=== PATIENT | female | born 1960 | race Caucasian/White ===

== ENCOUNTER → 2021-03-27 12:01 | Outpatient (CLI) | payer OTHER, SELFPAY ==
--- NOTE | 2021-03-27 | DI.MRI.S_ITS ---
PROCEDURE: MR HEAD/BRAIN WO CON INDICATIONS: Myoclonus TECHNIQUE: Non-contrast axial T1 spin echo, axial T2 fast spin echo, sagittal and axial FLAIR, coronal T2 fast spin echo, axial gradient echo, axial diffusion and ADC through the brain. COMPARISON: None. FINDINGS: Image quality: Excellent. CSF spaces: Ventricles appear symmetric in size and shape. Basal cisterns are patent. No extra-axial fluid collections. Brain: No intracranial bleeds or mass effects. There is mild cerebral volume loss for age. There are minimal periventricular and deep white matter chronic small vessel ischemic changes. Brainstem appears normal. Diffusion-weighted images show no acute ischemic insults. No chronic ischemic insults. Normal intravascular flow voids are present. Skull and face: Calvarial bone marrow is normal in signal. Orbits are normal. Sinuses: Retention cyst within the right maxillary sinus inferiorly. Sinuses and mastoids are otherwise clear. IMPRESSION: 1. Mild volume loss and minimal small vessel ischemic disease. 2. No acute process. No recent infarct. Dictated by: Stephani Rodriguez M.D. on 03/27/2021 at 12:49 Approved by: Stephani Rodriguez M.D. on 03/27/2021 at 12:50
== END ==
PROVIDERS: PCP Family Medicine; Referring Provider Family Medicine; Visit Provider Family Medicine
DX: G25.3 Myoclonus (principal); R20.0 Anesthesia of skin; R20.2 Paresthesia of skin
CPT/HCPCS: 70551

== ENCOUNTER → 2024-09-11 12:28 | Outpatient (CLI) | payer BC, SELFPAY ==
--- NOTE | 2024-09-11 12:32 | DI.ECHO.S_ITS ---
[facility] : : [id number] : [place] : : [id number] : : Phone: [phone] Echocardiogram Report + + :Name: ROSE ARIAS Study Date: 09/11/2024 Height: 67 in : [facility] ReadingLocation: Weight: 155 lb : : Gender: Female BSA: 1.8 m2 : :: 1960 Age: 64 yrs BP: 133/79 mmHg: :Reason For Study: S/P MITRAL VALVE REPAIR : :Ordering Physician: LUCINA, : :MÓNICA Performed By: Aurora Alarcon : :Referring: MÓNICA VERDUGO : + + Interpretation Summary The patient was in sinus rhythm with heart rates between 53-65 bpm during the exam. The patient had frequent PVCs during the exam. The left ventricle is mildly dilated. Previously normal in size. The ejection fraction is estimated to be 50-55%. Previous LVEF 55 to 60%. LV dyssynchrony during PVCs. The right ventricle is borderline dilated. The right ventricular systolic function is normal. The posterior mitral leaflet is thickened and fixed consistent with prior mitral repair surgery. There is a trivial to mild MR. Previously trivial MR. The mitral valve mean gradient is 4.3 mmHg. Previously 2.2 mmHg. Overall no significant mitral stenosis. There is mild tricuspid regurgitation. No significant change in TR. The right ventricular systolic pressure is estimated to be at least 28 mmHg based on an estimated right atrial pressure of 8 mm Hg. Procedure: A two-dimensional transthoracic echocardiogram with color flow and Doppler was performed. The study quality was technically adequate. Comparison is made with the echocardiogram of 10/03/2021. The patient had frequent PVCs during the exam. The patient was in sinus rhythm with heart rates between 53-65 bpm during the exam. Left Ventricle: The left ventricle is mildly dilated. There is normal left ventricular wall thickness. There is no thrombus. The ejection fraction is estimated to be 50-55%. LV dyssynchrony during PVCs. MV E/A: 0.76 Med Peak E' Armando: 5.7 cm/sec E/E' med: 19.0. Right Ventricle: The right ventricle is borderline dilated. The right ventricular systolic function is normal. Atria: The left atrium is severely dilated. The left atrium has mildly increased in size since the prior echo exam. The right atrium is mildly dilated. There is no Doppler evidence for an interatrial shunt. Mitral Valve: The posterior mitral leaflet is thickened and fixed consistent with prior mitral repair surgery. The mitral valve mean gradient is 4.3 mmHg. There is a trivial to mild MR. Aortic Valve: The aortic valve is trileaflet. The aortic valve opens well. There is no aortic valve stenosis. No aortic regurgitation is present. Tricuspid Valve: The tricuspid valve leaflets are thin and pliable. There is mild tricuspid regurgitation. The right ventricular systolic pressure is estimated to be at least 28 mmHg based on an estimated right atrial pressure of 8 mm Hg. Pulmonic Valve: The pulmonic valve leaflets are thin and pliable; valve motion is normal. There is mild pulmonic regurgitation. Great Vessels: The aortic root is normal size. The ascending aorta is mildly enlarged. The IVC is dilated (diameter is greater than 2.1 cm) yet it collapses greater than 50% with a sniff. This suggests a right atrial pressure of 8 mm Hg. Pericardium/ Pleura There is no pericardial effusion. There is no pleural effusion. MMode/2D Measurements & Calculations LVIDd: 6.3 cm LVOT diam: 2.2 cm LVIDs: 4.4 cm Ao root diam: 3.5 cm FS: 30.5 % asc Aorta Diam: 3.8 cm EPSS: 0.45 cm Ao Arch Diam (Prox Trans): 3.1 cm IVSd: 0.80 cm LVPWd: 0.79 cm LV milton. diameter/BSA (cm/m^2): 3.5 LV sys. diameter/BSA (cm/m^2): 2.4 LA A2 area: 27.6 cm2 RA long axis: 5.3 cm LA A4 area: 25.6 cm2 RA area: 20.3 cm2 LA length (vol): 6.4 cm RA vol: 66.2 ml LA vol: 93.4 ml RA : 36.5 ml/m2 LA vol index: 51.5 ml/m2 IVC diam: 2.7 cm RVD1 (basal): 4.2 cm RVD2 (mid): 3.6 cm TAPSE: 2.2 cm Doppler Measurements & Calculations Ao V2 max: 137.4 cm/sec LVOT Max Armando: 107.7 cm/sec Ao V2 mean: 97.3 cm/sec LV V1 max P.6 mmHg Ao max P.6 mmHg LV V1 VTI: 27.0 cm Ao mean P.1 mmHg LORENZA(I,D): 3.2 cm2 Ao V2 VTI: 32.6 cm LORENZA(V,D): 3.1 cm2 sev ratio: 0.83 LORENZA indexed to BSA (cm^2/m^2): 1.8 MV E max armando: 109.1 cm/sec TR max armando: 223.3 cm/sec MV A max armando: 144.4 cm/sec TR max P.9 mmHg MV E/A: 0.76 PA V2 max: 89.7 cm/sec Med Peak E' Armando: 5.7 cm/sec PA V2 mean: 61.9 cm/sec E/E' med: 19.0 PA mean P.7 mmHg Lat Peak E' Armando: 12.3 cm/sec PA pr(Accel): 20.8 mmHg E/E' lat: 8.9 E/e' average: 14.0 MV dec time: 0.34 sec MVA(VTI): 1.9 cm2 MV V2 mean: 96.9 cm/sec SV(LVOT): 105.6 ml MV mean P.3 mmHg MV V2 VTI: 56.8 cm Reading Physician:02:11 PM
== END ==
PROVIDERS: PCP Family Medicine; Referring Provider Internal Medicine Cardiovascular Disease; Visit Provider Internal Medicine Cardiovascular Disease
DX: I07.1 Rheumatic tricuspid insufficiency (principal); I77.89 Other specified disorders of arteries and arterioles; Z87.74 Personal history of (corrected) congenital malformations of heart and circulatory system; Z98.890 Other specified postprocedural states
CPT/HCPCS: 93306